=== PATIENT | male | born 1975 | race Two or more races ===

== ENCOUNTER 2020-09-10 04:41 | Emergency (ER) | payer MEDICAID ==
[~2020-09-10] VITALS: Ht 170.2 cm; Wt 88.5 kg
[2020-09-10 04:57] VITALS: BP 122/73
== END 2020-09-10 05:48 | disposition home or self-care (01) ==
LOC: ER 04:41
DX: F41.9 Anxiety disorder, unspecified (principal)
CPT/HCPCS: 93005